=== PATIENT | male | born 1990 | race American Indian/Alaskan Native ===

== ENCOUNTER 2018-08-26 00:25 | Emergency (ER) | payer SELFPAY ==
[2018-08-26 01:15] VITALS: BP 117/73
[2018-08-26] MEDS ORDERED: LIDOCAINE VISCOUS 2% PO ONE (01:22)
[2018-08-26] MEDS ORDERED: ULTRAM PO ONE (01:22)
[2018-08-26] MEDS ORDERED: IBUPROFEN PO ONE (01:22)
[2018-08-26] MEDS ORDERED: LIDOCAINE VISCOUS 2% ONE (01:26)
[2018-08-26] MEDS ORDERED: ULTRAM ONE (01:27)
[2018-08-26] MEDS ORDERED: NORCO 5/325 PO STA (01:31)
--- NOTE | 2018-08-26 01:33 | Emergency Department Report ---
ED ENT HPI - General Chief complaint: Dental/Oral Stated complaint: TOOTHACHE Time Seen by Provider: 08/26/18 01:28 Source: patient Mode of arrival: Ambulatory Limitations: No Limitations - History of Present Illness Initial comments: 27-year-old male was department complaining of pain to his tooth #8 which is missing, having pain to the root area. This has been removed for quite some time now is having a problem pain, nonspecific way feels a swelling to the gingiva also having pain to the left upper molar at the area of tooth #17. No discharge. No nausea, vomiting, no odynophagia or dysphagia. Pain is worse with chewing MD complaint: tooth pain Location: tooth # Severity: mild Quality: dull, constant Consistency: constant Worsens with: none Associated Symptoms: toothache - Related Data Previous Rx's Medication Instructions Recorded Last Taken Type Amoxicillin [Amoxicillin TAB] 875 mg PO BID #20 tablet 08/26/18 Unknown Rx Chlorhexidine Mouthwash [Peridex] 15 ml MM BID #473 bottle 08/26/18 Unknown Rx Ketorolac [Toradol] 10 mg PO Q6H PRN #15 tablet 08/26/18 Unknown Rx Lidocaine Viscous 2% 5 ml MM Q3H PRN #120 udc 08/26/18 Unknown Rx Allergies Allergy/AdvReac Type Severity Reaction Status Date / Time No Known Allergies Allergy Unverified 08/26/18 01:15 ED Dental HPI - General Chief complaint: Dental/Oral Stated complaint: TOOTHACHE Time Seen by Provider: 08/26/18 01:28 Source: patient Mode of arrival: Ambulatory Limitations: No Limitations - Related Data Previous Rx's Medication Instructions Recorded Last Taken Type Amoxicillin [Amoxicillin TAB] 875 mg PO BID #20 tablet 08/26/18 Unknown Rx Chlorhexidine Mouthwash [Peridex] 15 ml MM BID #473 bottle 08/26/18 Unknown Rx Ketorolac [Toradol] 10 mg PO Q6H PRN #15 tablet 08/26/18 Unknown Rx Lidocaine Viscous 2% 5 ml MM Q3H PRN #120 udc 08/26/18 Unknown Rx Allergies Allergy/AdvReac Type Severity Reaction Status Date / Time No Known Allergies Allergy Unverified 08/26/18 01:15 ED Review of Systems ROS: Stated complaint: TOOTHACHE Other details as noted in HPI Comment: All other systems reviewed and negative ED Past Medical Hx - Past Medical History Previous Medical History?: No - Surgical History Past Surgical History?: Yes Additional Surgical History: "titanium from R hip to knee" - Social History Smoking Status: Current Every Day Smoker Substance Use Type: Marijuana - Medications Home Medications: Home Medications Medication Instructions Recorded Confirmed Last Taken Type Amoxicillin [Amoxicillin TAB] 875 mg PO BID #20 tablet 08/26/18 Unknown Rx Chlorhexidine Mouthwash [Peridex] 15 ml MM BID #473 bottle 08/26/18 Unknown Rx Ketorolac [Toradol] 10 mg PO Q6H PRN #15 tablet 08/26/18 Unknown Rx Lidocaine Viscous 2% 5 ml MM Q3H PRN #120 udc 08/26/18 Unknown Rx ED Physical Exam - General Limitations: No Limitations General appearance: alert, in no apparent distress - Head Head exam: Present: atraumatic, normocephalic - Eye Eye exam: Present: normal appearance - ENT ENT exam: Present: mucous membranes moist, other (missing dentition in that spot #8 with some tenderness into the gingiva. No abscess or discharge appreciated. There is discomfort with palpation of tooth #1716 area minimal adjacent gingival erythema. Airway is patent. Tongue and uvula are midline.) - Neck Neck exam: Present: normal inspection - Respiratory Respiratory exam: Present: normal lung sounds bilaterally. Absent: respiratory distress - Cardiovascular Cardiovascular Exam: Present: regular rate, normal rhythm. Absent: systolic murmur, diastolic murmur, rubs, gallop - GI/Abdominal GI/Abdominal exam: Present: soft, normal bowel sounds - Rectal Rectal exam: Present: deferred - Extremities Exam Extremities exam: Present: normal inspection - Back Exam Back exam: Present: normal inspection - Neurological Exam Neurological exam: Present: alert, oriented X3 - Psychiatric Psychiatric exam: Present: normal affect, normal mood - Skin Skin exam: Present: warm, dry, intact, normal color. Absent: rash ED Course Vital Signs 08/26/18 01:08 Temperature 98.7 F Pulse Rate 71 Respiratory 18 Rate Blood Pressure 117/73 O2 Sat by Pulse 95 Oximetry ED Medical Decision Making - Medical Decision Making 27-year-old male with dentalgia unknown etiology reports no trauma. No fever, chills, sweats. No chest pain or palpitations. Links to have any general toothache. We'll treat him accordingly with anabiotic Yi algesic medications. Advised follow-up with the [facility] Critical care attestation.: If time is entered above; I have spent that time in minutes in the direct care of this critically ill patient, excluding procedure time. ED Disposition Clinical Impression: Dentalgia Disposition: TO HOME OR SELFCARE Is pt being admited?: No Does the pt Need Aspirin: No Condition: Stable Instructions: Toothache (ED) Referrals: [facility] [Outside] - 3-5 Days
== END 2018-08-26 02:05 | disposition home or self-care (01) ==
LOC: ED 00:25
DX: K08.89 Other specified disorders of teeth and supporting structures (principal); F17.200 Nicotine dependence, unspecified, uncomplicated
CPT/HCPCS: 99282

== ENCOUNTER 2018-11-27 20:40 | Emergency (ER) | payer SELFPAY ==
[2018-11-27 20:46] VITALS: BP 110/43
--- NOTE | 2018-11-27 21:26 | Emergency Department Report ---
Chief Complaint: Dental/Oral Stated Complaint: TOOTH PAIN Time Seen by Provider: 11/27/18 21:12 - HPI History of Present Illness: This is a 28-year-old male nontoxic well in appearance with no signs of distress presents to the ED with complaint of toothache. Patient states his #30 tooth broke last year but never gave him a problem until today. Patient denies any facial swelling. Denies following up with a dentist. Denies any fever, chills, headache, nausea, vomiting, chest pain or SOB. Denies any other complaints. Denies any allergies. - ROS Review of Systems: Constitutional: denies: chills, fever ENT: dental pain. denies: ear pain, throat pain Respiratory: denies: cough, shortness of breath, wheezing Cardiovascular: denies: chest pain, palpitations Gastrointestinal: denies: abdominal pain, nausea, diarrhea Skin: denies: rash, lesions Neurological: denies: headache, weakness, paresthesias Psychiatric: denies: anxiety, depression - Exam Vital Signs: Vital Signs 11/27/18 20:43 Temperature 97.8 F Pulse Rate 72 Respiratory 16 Rate Blood Pressure 110/43 O2 Sat by Pulse 100 Oximetry Physical Exam: General appearance: alert, in no apparent distress, obese ENT exam: Present: normal orophraynx, mucous membranes moist, TM's normal bilaterally, normal external ear exam, other (gingival swelling, tenderness, and partial tooth #30) Neck exam: Present: normal inspection Respiratory exam: Present: normal lung sounds bilaterally. Absent: respiratory distress Cardiovascular Exam: Present: regular rate, normal rhythm. Absent: systolic murmur, diastolic murmur, rubs, gallop GI/Abdominal exam: Present: soft, normal bowel sounds Neurological exam: Present: alert, oriented X3 Psychiatric exam: Present: normal affect, normal mood Skin exam: Present: warm, dry, intact, normal color. Absent: rash MSE screening note: Focused history and physical exam performed. Due to findings the following was ordered: ED Medical Decision Making - Medical Decision Making Patient is stable and was examined by me. There is gingival swelling, tendernes s, around partial tooth #30. There are negative facial swelling or palpable abscess to believe infection or need for antibiotics. Vitals stable and in no acute distress. Started on analgesics and mouthwash. Patient was instructed to Follow-up with a dentist and given handout for emergency dental follow up. At time of discharge, the patient does not seem toxic or ill in appearance. Patient agrees to discharge treatment plan of care. No further questions noted by the patient. ED Disposition for MSE Clinical Impression: Tooth ache Fracture of tooth Qualifiers: Encounter type: initial encounter Fracture type: closed Qualified Code(s): S02.5XXA - Fracture of tooth (traumatic), initial encounter for closed fracture Disposition: TO HOME OR SELFCARE Is pt being admited?: No Does the pt Need Aspirin: No Condition: Stable Instructions: Toothache (ED) Additional Instructions: I have provided a list of emergency dental clinics for you to follow up with in the referral list below. Prescriptions: Naproxen [Naprosyn] 500 mg PO BID #20 tablet Chlorhexidine Mouthwash [Peridex] 15 ml MM BID #473 bottle traMADol [Ultram 50 MG tab] 50 mg PO Q6HR PRN #10 tablet PRN Reason: Pain Referrals: [facility] [Outside] - 3-5 Days [facility] [Outside] - 3-5 Days [facility] [Outside] - 3-5 Days Time of Disposition: 21:34
== END 2018-11-27 22:13 | disposition home or self-care (01) ==
LOC: ED 20:40
DX: S02.5XXA Fracture of tooth (traumatic), initial encounter for closed fracture (principal); X58.XXXA Exposure to other specified factors, initial encounter; Y93.89 Activity, other specified; Y92.89 Other specified places as the place of occurrence of the external cause; Y99.8 Other external cause status

== ENCOUNTER 2018-12-01 12:29 | Emergency (ER) | payer SELFPAY ==
[2018-12-01 12:35] VITALS: BP 105/41
[2018-12-01] MEDS ORDERED: NORCO 5/325 PO ONE (13:30)
--- NOTE | 2018-12-01 13:32 | Emergency Department Report ---
ED ENT HPI - General Chief complaint: Dental/Oral Stated complaint: TOOTH INFECTED/SWELLING/PAIN Time Seen by Provider: 12/01/18 13:29 Source: patient Mode of arrival: Ambulatory Limitations: No Limitations - History of Present Illness Initial comments: This is a 28-year-old male that presents to the emergency room with complaint of toothache for 1 week. Patient states his #30 tooth broke last year but never gave him a problem until 1 week ago. Denies follow up with a dentist. States he was seen in the ER last week and taking pain medication with minimal improvement. Denies any fever, chills, headache, nausea, vomiting, drooling, chest pain or SOB. Denies any allergies. MD complaint: tooth pain Onset/Timin -: week(s) Location: tooth # (30) Severity: severe Severity scale (0 -10): 10 Quality: constant Consistency: other (throbbing) Improves with: none Worsens with: eating Context- Dental: history of dental caries, poor dental care Associated Symptoms: gum swelling, toothache - Related Data Previous Rx's Medication Instructions Recorded Last Taken Type Amoxicillin [Amoxicillin TAB] 875 mg PO BID #20 tablet 08/26/18 Unknown Rx Lidocaine Viscous 2% 5 ml MM Q3H PRN #120 udc 08/26/18 Unknown Rx Chlorhexidine Mouthwash [Peridex] 15 ml MM BID #473 bottle 11/27/18 Unknown Rx Naproxen [Naprosyn] 500 mg PO BID #20 tablet 11/27/18 Unknown Rx traMADol [Ultram 50 MG tab] 50 mg PO Q6HR PRN #10 tablet 11/27/18 Unknown Rx Acetaminophen/Codeine [Tylenol 1 tab PO Q6H PRN #12 tab 12/01/18 Unknown Rx /Codeine # 3 tab] Clindamycin [Clindamycin CAP] 300 mg PO Q8H #21 cap 12/01/18 Unknown Rx Allergies Allergy/AdvReac Type Severity Reaction Status Date / Time No Known Allergies Allergy Unverified 08/26/18 01:15 ED Dental HPI - General Chief complaint: Dental/Oral Stated complaint: TOOTH INFECTED/SWELLING/PAIN Time Seen by Provider: 12/01/18 13:29 Source: patient Mode of arrival: Ambulatory Limitations: No Limitations - Related Data Previous Rx's Medication Instructions Recorded Last Taken Type Amoxicillin [Amoxicillin TAB] 875 mg PO BID #20 tablet 08/26/18 Unknown Rx Lidocaine Viscous 2% 5 ml MM Q3H PRN #120 udc 08/26/18 Unknown Rx Chlorhexidine Mouthwash [Peridex] 15 ml MM BID #473 bottle 11/27/18 Unknown Rx Naproxen [Naprosyn] 500 mg PO BID #20 tablet 11/27/18 Unknown Rx traMADol [Ultram 50 MG tab] 50 mg PO Q6HR PRN #10 tablet 11/27/18 Unknown Rx Acetaminophen/Codeine [Tylenol 1 tab PO Q6H PRN #12 tab 12/01/18 Unknown Rx /Codeine # 3 tab] Clindamycin [Clindamycin CAP] 300 mg PO Q8H #21 cap 12/01/18 Unknown Rx Allergies Allergy/AdvReac Type Severity Reaction Status Date / Time No Known Allergies Allergy Unverified 08/26/18 01:15 ED Review of Systems ROS: Stated complaint: TOOTH INFECTED/SWELLING/PAIN Other details as noted in HPI Constitutional: denies: chills, fever ENT: dental pain. denies: ear pain, throat pain Respiratory: denies: cough, shortness of breath, wheezing Cardiovascular: denies: chest pain, palpitations Gastrointestinal: denies: abdominal pain, nausea, diarrhea Skin: denies: rash, lesions Neurological: denies: headache, weakness, paresthesias Psychiatric: denies: anxiety, depression ED Past Medical Hx - Past Medical History Previous Medical History?: No - Surgical History Past Surgical History?: No Additional Surgical History: "titanium from R hip to knee" - Social History Smoking Status: Current Every Day Smoker Substance Use Type: None - Medications Home Medications: Home Medications Medication Instructions Recorded Confirmed Last Taken Type Amoxicillin [Amoxicillin TAB] 875 mg PO BID #20 tablet 08/26/18 Unknown Rx Lidocaine Viscous 2% 5 ml MM Q3H PRN #120 udc 08/26/18 Unknown Rx Chlorhexidine Mouthwash [Peridex] 15 ml MM BID #473 bottle 11/27/18 Unknown Rx Naproxen [Naprosyn] 500 mg PO BID #20 tablet 11/27/18 Unknown Rx traMADol [Ultram 50 MG tab] 50 mg PO Q6HR PRN #10 tablet 11/27/18 Unknown Rx Acetaminophen/Codeine [Tylenol 1 tab PO Q6H PRN #12 tab 12/01/18 Unknown Rx /Codeine # 3 tab] Clindamycin [Clindamycin CAP] 300 mg PO Q8H #21 cap 12/01/18 Unknown Rx ED Physical Exam - General Limitations: No Limitations General appearance: alert, in no apparent distress - ENT ENT exam: Present: normal orophraynx, mucous membranes moist, TM's normal bilaterally, other (#30 dental avulsion, nonfluctuant gingiva swelling, erythema, and tenderness. Missing dentition at #8 with, gingiva tenderness, no abscess or discharge.) - Neck Neck exam: Present: normal inspection. Absent: lymphadenopathy - Respiratory Respiratory exam: Present: normal lung sounds bilaterally. Absent: respiratory distress - Cardiovascular Cardiovascular Exam: Present: regular rate, normal rhythm. Absent: systolic murmur, diastolic murmur, rubs, gallop - GI/Abdominal GI/Abdominal exam: Present: soft, normal bowel sounds - Neurological Exam Neurological exam: Present: alert, oriented X3 - Psychiatric Psychiatric exam: Present: normal affect, normal mood - Skin Skin exam: Present: warm, dry, intact, normal color. Absent: rash ED Course Vital Signs 12/01/18 12:34 Temperature 97.9 F Pulse Rate 77 Respiratory 18 Rate Blood Pressure 105/41 O2 Sat by Pulse 100 Oximetry ED Medical Decision Making - Medical Decision Making Patient is stable and was examined by me. Given norco once in ER. Susceptible of dental pain from tooth avulsion and #30 and poor dental care. Discussed plan with patient. He agreed with ER plan. Discharged home with clindamycin and Tylen ol No. 3. Follow up with dentist and referral to emergency dental clinics. Critical care attestation.: If time is entered above; I have spent that time in minutes in the direct care of this critically ill patient, excluding procedure time. ED Disposition Clinical Impression: Tooth ache Fracture of tooth Qualifiers: Encounter type: initial encounter Fracture type: closed Qualified Code(s): S02.5XXA - Fracture of tooth (traumatic), initial encounter for closed fracture Disposition: TO HOME OR SELFCARE Is pt being admited?: No Condition: Stable Instructions: Toothache (ED) Additional Instructions: Complete all days of clindamycin as prescribed for 7 days. Take pain medication every 6 hours as needed for pain. Follow up with Dentist in 24-72 hours. Prescriptions: Clindamycin [Clindamycin CAP] 300 mg PO Q8H #21 cap Acetaminophen/Codeine [Tylenol /Codeine # 3 tab] 1 tab PO Q6H PRN #12 tab PRN Reason: Pain , Severe (7-10) Referrals: [facility] [Outside] - 3-5 Days [facility] [Outside] - 3-5 Days [facility] [Outside] - 3-5 Days Time of Disposition: 13:52
== END 2018-12-01 14:01 | disposition home or self-care (01) ==
LOC: ED 12:29
DX: S02.5XXA Fracture of tooth (traumatic), initial encounter for closed fracture (principal); F17.200 Nicotine dependence, unspecified, uncomplicated; Z79.899 Other long term (current) drug therapy; X58.XXXA Exposure to other specified factors, initial encounter; Y93.89 Activity, other specified; Y92.89 Other specified places as the place of occurrence of the external cause; Y99.8 Other external cause status
CPT/HCPCS: 99282

== ENCOUNTER 2019-02-03 13:58 | Emergency (ER) | payer SELFPAY ==
[2019-02-03] MEDS ORDERED: HYDROcodone/ACETAMINOPHEN 7.5-325MG TAB PO ONE (14:40)
--- NOTE | 2019-02-03 14:44 | Event Note ---
ED Screening Note Date of service: 02/03/19 Time: 14:39 ED Screening Note: This is a 28 y.o. M. that presents to the ER with dental pain and abscess for 2 days. Patient reports pain is uncontrollable with pain medication. This initial assessment/diagnostic orders/clinical plan/treatment(s) is/are subject to change based on patients health status, clinical progression and re- assessment by fellow clinical providers in the ED. Further treatment and workup at subsequent clinical providers discretion. Patient/guardian urged not to elope from the ED as their condition may be serious if not clinically assessed and managed. Initial orders include: Analgesics given
[2019-02-03] MEDS ORDERED: ONDANSETRON 4 MG ODT TAB ONE (15:47)
[2019-02-03] MEDS ORDERED: CLINDAMYCIN 300 MG CAP PO ONE (16:12)
--- NOTE | 2019-02-03 16:46 | Emergency Department Report ---
ED ENT HPI - General Chief complaint: Dental/Oral Stated complaint: TOOTHACHE EXTREME Time Seen by Provider: 02/03/19 14:39 Source: patient Mode of arrival: Ambulatory Limitations: No Limitations - History of Present Illness Initial comments: The patient is a 28-year-old male who presents to ED complaining of 10/10 pain in the right side of his mouth x 5 days . Patient states that the pain started 5 days ago and has increased in severity over the last 2-3 days. The pain is exacerbated by eating and opening of the mouth. Patient states the pain is alleviated initially with pain medication but comes back. Patient states that it radiates towards ear. Patient describes a as a throbbing, pressure-like sensation. Patient states otherwise well and has no other complaints. Patient has had no fevers and no chills. No chest pain, no shortness of breath. No abdominal pain. No shortness of breath or recent trauma to the face. MD complaint: tooth pain - Related Data Previous Rx's Medication Instructions Recorded Last Taken Type Amoxicillin [Amoxicillin TAB] 875 mg PO BID #20 tablet 08/26/18 Unknown Rx Lidocaine Viscous 2% 5 ml MM Q3H PRN #120 udc 08/26/18 Unknown Rx Chlorhexidine Mouthwash [Peridex] 15 ml MM BID #473 bottle 11/27/18 Unknown Rx traMADoL [Ultram 50 MG tab] 50 mg PO Q6HR PRN #10 tablet 11/27/18 Unknown Rx Acetaminophen/Codeine [Tylenol 1 tab PO Q6H PRN #12 tab 02/03/19 Unknown Rx /Codeine # 3 tab] Clindamycin [Clindamycin CAP] 300 mg PO Q8H #21 cap 02/03/19 Unknown Rx Naproxen [Naprosyn] 500 mg PO BID #20 tablet 02/03/19 Unknown Rx Allergies Allergy/AdvReac Type Severity Reaction Status Date / Time No Known Allergies Allergy Verified 02/03/19 14:09 ED Dental HPI - General Chief complaint: Dental/Oral Stated complaint: TOOTHACHE EXTREME Time Seen by Provider: 02/03/19 14:39 Source: patient Mode of arrival: Ambulatory Limitations: No Limitations - Related Data Previous Rx's Medication Instructions Recorded Last Taken Type Amoxicillin [Amoxicillin TAB] 875 mg PO BID #20 tablet 08/26/18 Unknown Rx Lidocaine Viscous 2% 5 ml MM Q3H PRN #120 udc 08/26/18 Unknown Rx Chlorhexidine Mouthwash [Peridex] 15 ml MM BID #473 bottle 11/27/18 Unknown Rx traMADoL [Ultram 50 MG tab] 50 mg PO Q6HR PRN #10 tablet 11/27/18 Unknown Rx Acetaminophen/Codeine [Tylenol 1 tab PO Q6H PRN #12 tab 02/03/19 Unknown Rx /Codeine # 3 tab] Clindamycin [Clindamycin CAP] 300 mg PO Q8H #21 cap 02/03/19 Unknown Rx Naproxen [Naprosyn] 500 mg PO BID #20 tablet 02/03/19 Unknown Rx Allergies Allergy/AdvReac Type Severity Reaction Status Date / Time No Known Allergies Allergy Verified 02/03/19 14:09 ED Review of Systems ROS: Stated complaint: TOOTHACHE EXTREME Other details as noted in HPI Comment: All other systems reviewed and negative ED Past Medical Hx - Past Medical History Previous Medical History?: No - Surgical History Additional Surgical History: "titanium from R hip to knee" - Social History Smoking Status: Current Every Day Smoker Substance Use Type: Alcohol - Medications Home Medications: Home Medications Medication Instructions Recorded Confirmed Last Taken Type Amoxicillin [Amoxicillin TAB] 875 mg PO BID #20 tablet 08/26/18 Unknown Rx Lidocaine Viscous 2% 5 ml MM Q3H PRN #120 c 08/26/18 Unknown Rx Chlorhexidine Mouthwash [Peridex] 15 ml MM BID #473 bottle 11/27/18 Unknown Rx traMADoL [Ultram 50 MG tab] 50 mg PO Q6HR PRN #10 tablet 11/27/18 Unknown Rx Acetaminophen/Codeine [Tylenol 1 tab PO Q6H PRN #12 tab 02/03/19 Unknown Rx /Codeine # 3 tab] Clindamycin [Clindamycin CAP] 300 mg PO Q8H #21 cap 02/03/19 Unknown Rx Naproxen [Naprosyn] 500 mg PO BID #20 tablet 02/03/19 Unknown Rx ED Physical Exam - General Limitations: No Limitations General appearance: alert, in no apparent distress - Head Head exam: Present: atraumatic, normocephalic - Eye Eye exam: Present: normal appearance - ENT ENT exam: Present: mucous membranes moist - Expanded ENT Exam Expanded Teeth exam: Present: fractured tooth # (8), dental tenderness # (8 and 32) - Neck Neck exam: Present: normal inspection, full ROM. Absent: tenderness - Respiratory Respiratory exam: Present: normal lung sounds bilaterally. Absent: respiratory distress - Cardiovascular Cardiovascular Exam: Present: regular rate, normal rhythm. Absent: systolic murmur, diastolic murmur, rubs, gallop - GI/Abdominal GI/Abdominal exam: Present: soft, normal bowel sounds - Rectal Rectal exam: Present: deferred - Extremities Exam Extremities exam: Present: normal inspection - Back Exam Back exam: Present: normal inspection - Neurological Exam Neurological exam: Present: alert, oriented X3 - Psychiatric Psychiatric exam: Present: normal affect, normal mood - Skin Skin exam: Present: warm, dry, intact, normal color. Absent: rash ED Course Vital Signs 02/03/19 02/03/19 14:39 17:14 Temperature 98.6 F Pulse Rate 70 61 Respiratory 25 H 16 Rate Blood Pressure 144/75 Blood Pressure 136/74 [Left] O2 Sat by Pulse 100 98 Oximetry ED Medical Decision Making - Medical Decision Making 28-year-old male who presents with left-sided Facial pain secondary to odontogenic caries ED course: Patient received clinda and pain control Odontogenic infection versus ear infection. Based upon history and physical examination, pain is a result of an infection of tooth number 8 and 32 and that the pain Pt feels on the right side of his face and towards the ear is referred pain from this infectious process. Pt has no evidence of acute impending airway compromise. At this point, patient will be discharged home on some antibiotics and pain trial, she will do well with an outpatient course of antibiotics. Follow up with the Dental Clinic as referred Vital signs are normal patient is in no acute distress. Pt had an effect uneventful ED stay Critical care attestation.: If time is entered above; I have spent that time in minutes in the direct care of this critically ill patient, excluding procedure time. ED Disposition Clinical Impression: Pain, dental Disposition: [id number] TO HOME OR SELFCARE Is pt being admited?: No Does the pt Need Aspirin: No Condition: Stable Instructions: Dental Abscess (ED), Acute dental trauma (ED), Toothache (ED) Additional Instructions: Make sure to follow up with the primary care physician as discussed. Take all your medications as you've been prescribed. If you have any worsening symptoms or develop new symptoms please return to ED immediately. Prescriptions: Clindamycin [Clindamycin CAP] 300 mg PO Q8H #21 cap Naproxen [Naprosyn] 500 mg PO BID #20 tablet Acetaminophen/Codeine [Tylenol /Codeine # 3 tab] 1 tab PO Q6H PRN #12 tab PRN Reason: Pain , Severe (7-10) Referrals: [facility] [Outside] - 3-5 Days [facility] [Outside] - 3-5 Days Forms: Accompanied Note, Work/School Release Form(ED) Time of Disposition: 16:46
[2019-02-03 17:21] VITALS: BP 136/74
[2019-02-03] MEDS ORDERED: ONDANSETRON 4 MG ODT TAB PO ONE (18:21)
== END 2019-02-03 17:14 | disposition home or self-care (01) ==
LOC: ED 13:58
DX: K08.89 Other specified disorders of teeth and supporting structures (principal); F17.200 Nicotine dependence, unspecified, uncomplicated
CPT/HCPCS: 99282; Q0162